=== PATIENT | male | born 1980 | race Caucasian/White ===

== ENCOUNTER 2019-06-03 22:08 | Inpatient (IN) ==
[2019-06-03 23:09] LABS: Basophils % 0.3 % (0.0-0.8); Eosinophils % 0.4 % (0.00-10.9); Hematocrit 43.7 VOL% (42.0-52.0); Hemoglobin 13.8 GM/DL (14.0-18.0); Immature Granulocytes % 0.5 %; Immature Granulocytes Absolute 0.06 #; Lymphocytes % 9.4 % (21.2-54.2); Mean Corpuscular HGB Conc 31.6 GM/DL (32-36); Mean Platelet Volume 10.4 FL (9.6-12.0); Monocytes % 4.9 % (1.7-12.7); Neutrophils % 84.5 % (38.7-73.9); Platelet Count 264 T/CUMM (130-400); Red Cell Distribution Width 13.6 % (9.3-17.3); White Blood Count 11.1 T/CUMM (4-12)
[2019-06-03 23:20] LABS: Calcium 9.5 MG/DL (8.5-10.1); Osmolality,Calculated 284.1 MOS/KG (273-304)
[2019-06-04] MEDS ORDERED: ACETAMINOPHEN 325 MG TABLET PO PRN (00:52)
[2019-06-04] MEDS ORDERED: MORPHINE 4 MG/1 ML VIAL IV PRN (00:52)
[2019-06-04] MEDS ORDERED: NICOTINE 21 MG/24 HR PATCH TRANSDERM PRN (00:52)
[2019-06-04] MEDS ORDERED: ONDANSETRON 4 MG/2 ML VIAL IV PRN (00:52)
[2019-06-04] MEDS ORDERED: diphenhydrAMINE CAP 25 MG CAPSULE PO PRN (00:52)
[2019-06-04] MEDS ORDERED: dilTIAZem Drip 125 MG/125 ML PREMIX IV SCH (01:00)
[2019-06-04 01:45] LABS: Risk Ratio 5.46; Thyroid Stimulating Hormone 1.95 uIU/ml (0.358-3.74)
[2019-06-04] MEDS ORDERED: dilTIAZem Drip 125 MG/125 ML PREMIX IV ONE (01:53)
[2019-06-04] MEDS ORDERED: ENOXAPARIN 100 MG/ML SYRINGE SUBCUT ONE (02:02)
[2019-06-04] MEDS: ENOXAPARIN 100 MG/ML SYRINGE SUBCUT SCH ×2 (02:38→19:55)
[2019-06-04 05:05] LABS: Apearance,Urine CLEAR (Clear); Bilirubin,Urine Negative (Negative); Blood, Urine Negative (Negative); Glucose,Urine (UA) Negative (Negative); Ketones,Urine Negative (Negative); Mucus,Urine Occasional /LPF (Occasional); Nitrite,Urine Negative (Negative); Protein,Urine Negative; Urine Color Yellow (Yellow); Urine Specific Gravity 1.016 (1.001-1.035); Urine Urobilinogen < 2.0 EU/DL (0.2-1.0); WBC,Urine 1 /HPF (0-6)
[2019-06-04 05:47] LABS: Albumin 3.4 G/DL (3.4-5.0); Bilirubin,Total 1.1 MG/DL (0.2-1.0); Calcium 9.6 MG/DL (8.5-10.1); Osmolality,Calculated 281.1 MOS/KG (273-304); Total Protein 6.8 G/DL (6.4-8.3)
[2019-06-04] MEDS: PANTOPRAZOLE 40 MG TABLET PO SCH (10:10)
[2019-06-04] MEDS ORDERED: POTASSIUM CHLORIDE RIDER 10 MEQ in PREMIX 1 EACH IV PRN (14:32)
[2019-06-04] MEDS ORDERED: MAGNESIUM SULF RIDER 2 GM in PREMIX 1 EACH IV PRN (14:32)
[2019-06-04] MEDS: POTASSIUM CHLORIDE 10 MEQ TABLET PO SCH (14:40)
[2019-06-04] MEDS: ASPIRIN EC 325 MG TABLET PO SCH (14:40)
[2019-06-04] MEDS ORDERED: DIAZEPAM 5 MG TABLET PO ONE (15:00)
[2019-06-04] MEDS ORDERED: diphenhydrAMINE CAP 25 MG CAPSULE PO ONE (15:00)
[2019-06-04 15:42] LABS: Barbiturates Screen,Urine Negative (Negative); Benzodiazepines Screen,Urine Negative (Negative); Cannabinoid Screen,Urine Negative (Negative); Opiate Screen,Urine Negative (Negative); Phencyclidine Screen,Urine Negative (Negative)
[2019-06-04] MEDS: SACUBITRIL/VALSARTAN 49-51 MG TABLET PO SCH (20:46)
[2019-06-04] MEDS ORDERED: CARVEDILOL 6.25 MG TABLET PO SCH (21:00)
[2019-06-05 04:46] LABS: PT Patient Result 11.3 SECS
[2019-06-05 04:48] LABS: Basophils % 0.5 % (0.0-0.8); Eosinophils # 0.1 10*3/uL (0.0-0.87); Eosinophils % 1.8 % (0.00-10.9); Hematocrit 41.7 VOL% (42.0-52.0); Hemoglobin 13.6 GM/DL (14.0-18.0); Immature Granulocytes % 0.3 %; Immature Granulocytes Absolute 0.02 #; Lymphocytes # 1.9 10*3/uL (1.4-4.0); Lymphocytes % 30.3 % (21.2-54.2); Mean Corpuscular HGB Conc 32.6 GM/DL (32-36); Mean Corpuscular Volume 92.1 FL (87-102); Mean Platelet Volume 10.6 FL (9.6-12.0); Neutrophils % 59.1 % (38.7-73.9); Platelet Count 290 T/CUMM (130-400); Red Blood Count 4.53 MC/CUMM (3.8-5.5); White Blood Count 6.1 T/CUMM (4-12)
[2019-06-05 05:17] LABS: Calcium 9.8 MG/DL (8.5-10.1); Osmolality,Calculated 282.1 MOS/KG (273-304)
[2019-06-05] MEDS ORDERED: DIAZEPAM 5 MG TABLET PO ONE (07:00)
[2019-06-05] MEDS ORDERED: diphenhydrAMINE CAP 25 MG CAPSULE PO ONE (07:00)
[2019-06-05] MEDS: SACUBITRIL/VALSARTAN 49-51 MG TABLET PO SCH ×2 (10:00→20:35)
[2019-06-05] MEDS: ENOXAPARIN 40 MG/0.4 ML SYRINGE SUBCUT SCH (10:01)
[2019-06-05] MEDS: POTASSIUM CHLORIDE 10 MEQ TABLET PO SCH (10:01)
[2019-06-05] MEDS: CARVEDILOL 3.125 MG TABLET PO SCH ×2 (10:01→20:35)
[2019-06-05] MEDS: PANTOPRAZOLE 40 MG TABLET PO SCH (10:01)
[2019-06-05] MEDS: ASPIRIN EC 325 MG TABLET PO SCH (10:01)
[2019-06-06 04:57] LABS: Basophils % 0.5 % (0.0-0.8); Eosinophils # 0.1 10*3/uL (0.0-0.87); Eosinophils % 1.9 % (0.00-10.9); Hematocrit 43.3 VOL% (42.0-52.0); Hemoglobin 14.1 GM/DL (14.0-18.0); Immature Granulocytes % 0.3 %; Immature Granulocytes Absolute 0.02 #; Lymphocytes # 1.6 10*3/uL (1.4-4.0); Lymphocytes % 27.3 % (21.2-54.2); Mean Corpuscular HGB Conc 32.6 GM/DL (32-36); Mean Corpuscular Volume 91.5 FL (87-102); Mean Platelet Volume 10.5 FL (9.6-12.0); Monocytes % 9.1 % (1.7-12.7); Neutrophils % 60.9 % (38.7-73.9); Platelet Count 273 T/CUMM (130-400); Red Blood Count 4.73 MC/CUMM (3.8-5.5); Red Cell Distribution Width 13.9 % (9.3-17.3); White Blood Count 5.7 T/CUMM (4-12)
[2019-06-06 05:13] LABS: Calcium 9.5 MG/DL (8.5-10.1); Osmolality,Calculated 279.3 MOS/KG (273-304)
[2019-06-06] MEDS ORDERED: POTASSIUM CHLORIDE RIDER 10 MEQ in PREMIX 1 EACH IV PRN (07:14)
[2019-06-06] MEDS ORDERED: diphenhydrAMINE CAP 25 MG CAPSULE PO ONE ×2 (07:14→14:00)
[2019-06-06] MEDS ORDERED: MAGNESIUM SULF RIDER 2 GM in PREMIX 1 EACH IV PRN (07:14)
[2019-06-06] MEDS ORDERED: DIAZEPAM 5 MG TABLET PO ONE ×2 (07:14→14:00)
[2019-06-06] MEDS: ENOXAPARIN 40 MG/0.4 ML SYRINGE SUBCUT SCH (08:23)
[2019-06-06] MEDS: ASPIRIN EC 325 MG TABLET PO SCH (08:23)
[2019-06-06] MEDS: POTASSIUM CHLORIDE 10 MEQ TABLET PO SCH (08:23)
[2019-06-06] MEDS: CARVEDILOL 3.125 MG TABLET PO SCH ×2 (08:23→21:23)
[2019-06-06] MEDS: PANTOPRAZOLE 40 MG TABLET PO SCH (08:23)
[2019-06-06] MEDS: SACUBITRIL/VALSARTAN 49-51 MG TABLET PO SCH ×2 (08:23→21:21)
[2019-06-06] MEDS ORDERED: LIDOCAINE 1% 20 ML VIAL ONE ×2 (13:12→13:40)
[2019-06-06] MEDS ORDERED: VERAPAMIL 5 MG/2 ML VIAL ONE ×2 (13:12→14:59)
[2019-06-06] MEDS ORDERED: NITROGLYCERIN DRIP 50 MG/250 ML BOTTLE IV ONE (13:12)
[2019-06-06] MEDS ORDERED: HEPARIN/NACL 0.9% 2 UNITS/ML 500 ML IV ONE (13:40)
[2019-06-06] MEDS ORDERED: TISSUE ADHESIVE 1 EACH APPLICATOR TOP ONE (13:41)
[2019-06-06] MEDS ORDERED: fentaNYL 100 MCG/2 ML VIAL ONE (13:41)
[2019-06-06] MEDS ORDERED: MIDAZOLAM 2 MG/2 ML VIAL ONE ×2 (13:41→14:21)
[2019-06-06] MEDS ORDERED: HYDROmorphone 2 MG/1 ML VIAL ONE (14:21)
[2019-06-06] MEDS ORDERED: ENOXAPARIN 60 MG/0.6 ML SYRINGE ONE (15:10)
[2019-06-06] MEDS ORDERED: ENOXAPARIN 30 MG/0.3 ML SYRINGE ONE (15:10)
[2019-06-07 06:32] LABS: Basophils % 0.4 % (0.0-0.8); Eosinophils # 0.1 10*3/uL (0.0-0.87); Eosinophils % 1.3 % (0.00-10.9); Hematocrit 42.5 VOL% (42.0-52.0); Hemoglobin 13.9 GM/DL (14.0-18.0); Immature Granulocytes % 0.6 %; Immature Granulocytes Absolute 0.05 #; Lymphocytes # 1.2 10*3/uL (1.4-4.0); Lymphocytes % 14.9 % (21.2-54.2); Mean Corpuscular HGB Conc 32.7 GM/DL (32-36); Mean Corpuscular Volume 90.8 FL (87-102); Mean Platelet Volume 10.6 FL (9.6-12.0); Monocytes % 8.3 % (1.7-12.7); Neutrophils % 74.5 % (38.7-73.9); Platelet Count 263 T/CUMM (130-400); Red Blood Count 4.68 MC/CUMM (3.8-5.5); Red Cell Distribution Width 14.2 % (9.3-17.3); White Blood Count 8.3 T/CUMM (4-12)
[2019-06-07 06:51] LABS: Calcium 9.7 MG/DL (8.5-10.1); Osmolality,Calculated 278.4 MOS/KG (273-304)
[2019-06-07] MEDS: SACUBITRIL/VALSARTAN 49-51 MG TABLET PO SCH ×2 (10:27→20:08)
[2019-06-07] MEDS: CARVEDILOL 3.125 MG TABLET PO SCH ×3 (10:28→20:08)
[2019-06-07] MEDS: ENOXAPARIN 40 MG/0.4 ML SYRINGE SUBCUT SCH (10:28)
[2019-06-07] MEDS: PANTOPRAZOLE 40 MG TABLET PO SCH (10:28)
[2019-06-07] MEDS: POTASSIUM CHLORIDE 10 MEQ TABLET PO SCH (10:28)
[2019-06-07] MEDS: ASPIRIN EC 325 MG TABLET PO SCH (10:28)
[2019-06-08 05:10] LABS: Basophils % 0.3 % (0.0-0.8); Eosinophils # 0.1 10*3/uL (0.0-0.87); Eosinophils % 1.8 % (0.00-10.9); Hematocrit 43.4 VOL% (42.0-52.0); Hemoglobin 13.9 GM/DL (14.0-18.0); Immature Granulocytes % 0.3 %; Immature Granulocytes Absolute 0.02 #; Lymphocytes # 1.6 10*3/uL (1.4-4.0); Lymphocytes % 26.2 % (21.2-54.2); Mean Corpuscular Volume 91.9 FL (87-102); Mean Platelet Volume 10.4 FL (9.6-12.0); Monocytes % 9.2 % (1.7-12.7); Neutrophils % 62.2 % (38.7-73.9); Platelet Count 251 T/CUMM (130-400); Red Blood Count 4.72 MC/CUMM (3.8-5.5); Red Cell Distribution Width 13.9 % (9.3-17.3); White Blood Count 6.1 T/CUMM (4-12)
[2019-06-08 05:28] LABS: Calcium 9.8 MG/DL (8.5-10.1); Osmolality,Calculated 281.1 MOS/KG (273-304)
[2019-06-08] MEDS ORDERED: ceFAZolin 1,000 MG VIAL IRRIG ONE (06:00)
[2019-06-08] MEDS ORDERED: diphenhydrAMINE CAP 25 MG CAPSULE PO ONE (06:00)
[2019-06-08] MEDS ORDERED: DIAZEPAM 5 MG TABLET PO ONE (06:00)
[2019-06-08] MEDS ORDERED: SODIUM CHLORIDE 0.9% 1,000 ML IV SCH (06:00)
[2019-06-08] MEDS ORDERED: ceFAZolin 1,000 MG in SYRINGE 1 EACH IV ONE (06:00)
[2019-06-08] MEDS: POTASSIUM CHLORIDE 10 MEQ TABLET PO SCH (09:35)
[2019-06-08] MEDS: CARVEDILOL 3.125 MG TABLET PO SCH ×2 (09:35→20:58)
[2019-06-08] MEDS: PANTOPRAZOLE 40 MG TABLET PO SCH (09:36)
[2019-06-08] MEDS: SACUBITRIL/VALSARTAN 49-51 MG TABLET PO SCH ×2 (09:38→20:58)
[2019-06-08] MEDS ORDERED: LIDOCAINE 1% 20 ML VIAL ONE ×2 (10:40→11:35)
[2019-06-08] MEDS ORDERED: TISSUE ADHESIVE 1 EACH APPLICATOR TOP ONE (10:41)
[2019-06-08] MEDS ORDERED: ceFAZolin 1,000 MG VIAL ONE (10:41)
[2019-06-08] MEDS ORDERED: PROPOFOL 200 MG/20 ML VIAL IV ONE (13:30)
[2019-06-08] MEDS ORDERED: MIDAZOLAM 2 MG/2 ML VIAL ONE ×2 (13:31)
[2019-06-08] MEDS ORDERED: fentaNYL 100 MCG/2 ML VIAL ONE (13:31)
[2019-06-08] MEDS: ASPIRIN EC 325 MG TABLET PO SCH ×2 (14:40→14:42)
[2019-06-08] MEDS: ENOXAPARIN 40 MG/0.4 ML SYRINGE SUBCUT SCH (14:41)
[2019-06-09] MEDS: ASPIRIN EC 325 MG TABLET PO SCH (08:33)
[2019-06-09] MEDS: POTASSIUM CHLORIDE 10 MEQ TABLET PO SCH (08:33)
[2019-06-09] MEDS: PANTOPRAZOLE 40 MG TABLET PO SCH (08:34)
[2019-06-09] MEDS: CARVEDILOL 3.125 MG TABLET PO SCH (08:34)
[2019-06-09] MEDS: SACUBITRIL/VALSARTAN 49-51 MG TABLET PO SCH (08:43)
[2019-06-09 16:47] VITALS: BP 147/83
[2019-06-10] MEDS ORDERED: FUROSEMIDE 40 MG TABLET PO SCH (09:00)
== END 2019-06-09 16:20 | disposition home or self-care (01) | DRG 225 ==
LOC: EDUNIT# → EDBD → N.ED 22:08 → N.EDINP 22:08 → SUATTDRO 06-04 00:52 → N.TELES 06-04 01:13
PROVIDERS: ADMIT Internal Medicine Geriatric Medicine; ATTEND Internal Medicine Cardiovascular Disease
PROC: CLDCICD (2019-06-08 10:45)

== ENCOUNTER 2019-06-14 17:54 | Inpatient (IN) ==
[2019-06-14 20:28] LABS: Basophils % 0.5 % (0.0-0.8); Eosinophils # 0.1 10*3/uL (0.0-0.87); Eosinophils % 1.4 % (0.00-10.9); Hematocrit 46.1 VOL% (42.0-52.0); Hemoglobin 15.1 GM/DL (14.0-18.0); Immature Granulocytes % 0.4 %; Immature Granulocytes Absolute 0.03 #; Lymphocytes # 1.9 10*3/uL (1.4-4.0); Lymphocytes % 24.7 % (21.2-54.2); Mean Corpuscular HGB Conc 32.8 GM/DL (32-36); Mean Corpuscular Volume 90.4 FL (87-102); Mean Platelet Volume 10.4 FL (9.6-12.0); Monocytes % 9.6 % (1.7-12.7); Neutrophils % 63.4 % (38.7-73.9); Platelet Count 277 T/CUMM (130-400); Red Cell Distribution Width 13.3 % (9.3-17.3); White Blood Count 7.7 T/CUMM (4-12)
[2019-06-14] MEDS ORDERED: ACETAMINOPHEN 325 MG TABLET PO PRN (20:43)
[2019-06-14] MEDS ORDERED: DOCUSATE SODIUM 100 MG CAPSULE PO PRN (20:43)
[2019-06-14] MEDS ORDERED: ONDANSETRON 4 MG/2 ML VIAL IV PRN (20:43)
[2019-06-14 20:51] LABS: Calcium 9.5 MG/DL (8.5-10.1); Osmolality,Calculated 279.4 MOS/KG (273-304)
[2019-06-14] MEDS: APIXABAN 5 MG TABLET PO SCH (21:24)
[2019-06-14 22:29] LABS: Troponin I 0.026 NG/ML (0.00-0.045)
[2019-06-15 03:42] LABS: Calcium 9.7 MG/DL (8.5-10.1); Osmolality,Calculated 279.4 MOS/KG (273-304)
[2019-06-15 04:05] LABS: Troponin I 0.027 NG/ML (0.00-0.045)
[2019-06-15] MEDS ORDERED: POTASSIUM CHLORIDE 10 MEQ TABLET PO ONE (06:00)
[2019-06-15] MEDS ORDERED: POTASSIUM CHLORIDE 20 MEQ TABLET PO ONE (08:31)
[2019-06-15 08:56] LABS: Troponin I 0.029 NG/ML (0.00-0.045)
[2019-06-15] MEDS ORDERED: POTASSIUM CHLORIDE 10 MEQ TABLET PO SCH (09:00)
[2019-06-15] MEDS: FUROSEMIDE 40 MG TABLET PO SCH (09:07)
[2019-06-15] MEDS: POTASSIUM CHLORIDE 10 MEQ TABLET PO SCH (09:07)
[2019-06-15] MEDS: APIXABAN 5 MG TABLET PO SCH ×2 (09:07→21:31)
[2019-06-15] MEDS: ASPIRIN EC 325 MG TABLET PO SCH (09:07)
[2019-06-15] MEDS ORDERED: AMIODARONE INJ 150 MG in DEXTROSE 5% 100 ML IV ONE (09:12)
[2019-06-15] MEDS ORDERED: AMIODARONE INJ 450 MG in DEXTROSE 5% 241 ML IV SCH (09:30)
[2019-06-15] MEDS: CHOLECALCIFEROL 1,000 UNIT TABLET PO SCH (10:07)
[2019-06-15 12:42] LABS: Barbiturates Screen,Urine Negative (Negative); Benzodiazepines Screen,Urine Negative (Negative); Cannabinoid Screen,Urine Negative (Negative); Opiate Screen,Urine Negative (Negative); Phencyclidine Screen,Urine Negative (Negative)
[2019-06-15] MEDS: AMIODARONE INJ 450 MG in DEXTROSE 5% 241 ML IV SCH ×2 (16:08→21:32)
[2019-06-15] MEDS: SACUBITRIL/VALSARTAN 49-51 MG TABLET PO SCH (21:31)
[2019-06-15] MEDS: CARVEDILOL 3.125 MG TABLET PO SCH (21:31)
[2019-06-16 05:39] LABS: Basophils % 0.5 % (0.0-0.8); Eosinophils # 0.2 10*3/uL (0.0-0.87); Eosinophils % 2.6 % (0.00-10.9); Hematocrit 43.1 VOL% (42.0-52.0); Hemoglobin 13.5 GM/DL (14.0-18.0); Immature Granulocytes % 0.4 %; Immature Granulocytes Absolute 0.02 #; Lymphocytes # 1.8 10*3/uL (1.4-4.0); Lymphocytes % 31.9 % (21.2-54.2); Mean Corpuscular HGB Conc 31.3 GM/DL (32-36); Mean Corpuscular Volume 92.7 FL (87-102); Mean Platelet Volume 10.6 FL (9.6-12.0); Monocytes % 10.2 % (1.7-12.7); Neutrophils % 54.4 % (38.7-73.9); Platelet Count 256 T/CUMM (130-400); Red Blood Count 4.65 MC/CUMM (3.8-5.5); Red Cell Distribution Width 13.3 % (9.3-17.3); White Blood Count 5.7 T/CUMM (4-12)
[2019-06-16 05:46] LABS: Calcium 9.5 MG/DL (8.5-10.1); Osmolality,Calculated 283.1 MOS/KG (273-304)
[2019-06-16] MEDS: AMIODARONE INJ 450 MG in DEXTROSE 5% 241 ML IV SCH ×2 (08:39→20:39)
[2019-06-16] MEDS: SACUBITRIL/VALSARTAN 49-51 MG TABLET PO SCH ×2 (08:40→20:37)
[2019-06-16] MEDS: CHOLECALCIFEROL 1,000 UNIT TABLET PO SCH (08:41)
[2019-06-16] MEDS: POTASSIUM CHLORIDE 10 MEQ TABLET PO SCH (08:41)
[2019-06-16] MEDS: CARVEDILOL 3.125 MG TABLET PO SCH (08:42)
[2019-06-16] MEDS: FUROSEMIDE 40 MG TABLET PO SCH (08:42)
[2019-06-16] MEDS: ASPIRIN EC 325 MG TABLET PO SCH (08:42)
[2019-06-16] MEDS: APIXABAN 5 MG TABLET PO SCH ×2 (08:42→20:37)
[2019-06-16] MEDS: AMIODARONE 200 MG TABLET PO SCH ×2 (09:57→20:36)
[2019-06-16] MEDS: CARVEDILOL 6.25 MG TABLET PO SCH ×2 (10:58→20:37)
[2019-06-17 05:53] LABS: Basophils % 0.2 % (0.0-0.8); Eosinophils # 0.2 10*3/uL (0.0-0.87); Eosinophils % 1.9 % (0.00-10.9); Hemoglobin 13.8 GM/DL (14.0-18.0); Immature Granulocytes % 0.2 %; Immature Granulocytes Absolute 0.02 #; Lymphocytes # 2.2 10*3/uL (1.4-4.0); Lymphocytes % 25.9 % (21.2-54.2); Mean Corpuscular HGB Conc 32.1 GM/DL (32-36); Mean Corpuscular Volume 92.5 FL (87-102); Mean Platelet Volume 10.7 FL (9.6-12.0); Monocytes % 8.8 % (1.7-12.7); Platelet Count 307 T/CUMM (130-400); Red Blood Count 4.65 MC/CUMM (3.8-5.5); Red Cell Distribution Width 13.5 % (9.3-17.3); White Blood Count 8.4 T/CUMM (4-12)
[2019-06-17 06:33] LABS: Calcium 9.4 MG/DL (8.5-10.1); Osmolality,Calculated 276.5 MOS/KG (273-304)
[2019-06-17] MEDS: CHOLECALCIFEROL 1,000 UNIT TABLET PO SCH (08:35)
[2019-06-17] MEDS: SACUBITRIL/VALSARTAN 49-51 MG TABLET PO SCH ×2 (08:36→20:37)
[2019-06-17] MEDS: AMIODARONE 200 MG TABLET PO SCH ×2 (08:36→20:38)
[2019-06-17] MEDS: FUROSEMIDE 40 MG TABLET PO SCH (08:37)
[2019-06-17] MEDS: POTASSIUM CHLORIDE 10 MEQ TABLET PO SCH (08:37)
[2019-06-17] MEDS: CARVEDILOL 6.25 MG TABLET PO SCH (08:37)
[2019-06-17] MEDS: APIXABAN 5 MG TABLET PO SCH ×2 (08:37→20:39)
[2019-06-17] MEDS: ASPIRIN EC 325 MG TABLET PO SCH (08:37)
[2019-06-17] MEDS: CARVEDILOL 3.125 MG TABLET PO SCH (20:38)
[2019-06-18 05:23] LABS: Basophils % 0.4 % (0.0-0.8); Eosinophils # 0.2 10*3/uL (0.0-0.87); Eosinophils % 2.2 % (0.00-10.9); Hematocrit 40.7 VOL% (42.0-52.0); Hemoglobin 13.1 GM/DL (14.0-18.0); Immature Granulocytes % 0.3 %; Immature Granulocytes Absolute 0.02 #; Lymphocytes # 2.1 10*3/uL (1.4-4.0); Lymphocytes % 30.8 % (21.2-54.2); Mean Corpuscular HGB Conc 32.2 GM/DL (32-36); Mean Corpuscular Volume 92.1 FL (87-102); Mean Platelet Volume 10.6 FL (9.6-12.0); Monocytes % 10.7 % (1.7-12.7); Neutrophils % 55.6 % (38.7-73.9); Platelet Count 266 T/CUMM (130-400); Red Blood Count 4.42 MC/CUMM (3.8-5.5); Red Cell Distribution Width 13.2 % (9.3-17.3); White Blood Count 6.8 T/CUMM (4-12)
[2019-06-18 05:35] LABS: Calcium 9.5 MG/DL (8.5-10.1); Osmolality,Calculated 282.1 MOS/KG (273-304)
[2019-06-18] MEDS: POTASSIUM CHLORIDE 10 MEQ TABLET PO SCH (09:04)
[2019-06-18] MEDS: APIXABAN 5 MG TABLET PO SCH ×2 (09:04→20:48)
[2019-06-18] MEDS: ASPIRIN EC 325 MG TABLET PO SCH (09:04)
[2019-06-18] MEDS: CHOLECALCIFEROL 1,000 UNIT TABLET PO SCH (09:04)
[2019-06-18] MEDS: AMIODARONE 200 MG TABLET PO SCH ×2 (09:04→20:47)
[2019-06-18] MEDS: CARVEDILOL 3.125 MG TABLET PO SCH ×3 (11:18→20:47)
[2019-06-18] MEDS: FUROSEMIDE 40 MG TABLET PO SCH ×2 (11:19→14:01)
[2019-06-18] MEDS: SACUBITRIL/VALSARTAN 49-51 MG TABLET PO SCH ×3 (11:19→20:48)
[2019-06-19 05:26] LABS: Basophils % 0.2 % (0.0-0.8); Eosinophils # 0.1 10*3/uL (0.0-0.87); Eosinophils % 2.7 % (0.00-10.9); Hematocrit 38.9 VOL% (42.0-52.0); Hemoglobin 12.4 GM/DL (14.0-18.0); Immature Granulocytes % 0.4 %; Immature Granulocytes Absolute 0.02 #; Lymphocytes # 1.5 10*3/uL (1.4-4.0); Lymphocytes % 29.1 % (21.2-54.2); Mean Corpuscular HGB Conc 31.9 GM/DL (32-36); Mean Corpuscular Volume 92.4 FL (87-102); Mean Platelet Volume 10.6 FL (9.6-12.0); Monocytes % 9.9 % (1.7-12.7); Neutrophils % 57.7 % (38.7-73.9); Platelet Count 237 T/CUMM (130-400); Red Blood Count 4.21 MC/CUMM (3.8-5.5); Red Cell Distribution Width 13.3 % (9.3-17.3); White Blood Count 5.2 T/CUMM (4-12)
[2019-06-19 06:10] LABS: Calcium 9.7 MG/DL (8.5-10.1); Osmolality,Calculated 279.3 MOS/KG (273-304)
[2019-06-19] MEDS: CHOLECALCIFEROL 1,000 UNIT TABLET PO SCH (09:37)
[2019-06-19] MEDS: APIXABAN 5 MG TABLET PO SCH (09:37)
[2019-06-19] MEDS: CARVEDILOL 3.125 MG TABLET PO SCH (09:38)
[2019-06-19] MEDS: ASPIRIN EC 325 MG TABLET PO SCH (09:38)
[2019-06-19] MEDS: AMIODARONE 200 MG TABLET PO SCH (09:38)
[2019-06-19] MEDS: SACUBITRIL/VALSARTAN 49-51 MG TABLET PO SCH (09:38)
[2019-06-19] MEDS: POTASSIUM CHLORIDE 10 MEQ TABLET PO SCH (09:38)
[2019-06-19] MEDS: FUROSEMIDE 40 MG TABLET PO SCH (09:38)
[2019-06-19 12:08] VITALS: BP 117/75
[2019-06-20] MEDS ORDERED: AMIODARONE 200 MG TABLET PO SCH (09:00)
== END 2019-06-19 14:31 | disposition home or self-care (01) | DRG 309 ==
LOC: N.TELEN 19:01 → SUATTDRO 19:48
PROVIDERS: ADMIT Internal Medicine; ATTEND Hospitalist